=== PATIENT | male | born 1995 | race Caucasian/White ===

== ENCOUNTER 2017-08-11 15:46 | Emergency (ER) | payer BC ==
--- NOTE | 2017-08-11 16:27 | ED ---
Shortness of Breath - HPI Summary HPI Summary: Patient is a 21yo M who presents to the ED after sent by [facility], with chief complaint of L anterior CP since 2 days ago after coughing. The CC is described as a sudden onset, radiating into the R side of his neck. The patient rates the pain 3/10 in severity. Symptoms aggravated by walking up and down stairs and taking a deep breath. Symptoms alleviated by nothing. Patient reports a cough ( resolved today) and decreased breaths. Patient denies fever, N/V/D, and SOB. He notes this has happened before but has spontaneously resolved after 1-2 days in the past. This one seems to not be resolving and was concerned. Parents are at bedside. He appears to be in NAD. Denies health problems. - History of Current Complaint Chief Complaint: EDGeneral Time Seen by Provider: 08/11/17 15:51 Hx Obtained From: Patient Onset/Duration: Sudden Onset Timing: Constant Current Severity: Mild Dyspnea At: Rest Aggrevating Factors: Movement Alleviating Factors: Upright Position Associated Signs & Symptoms: Chest Pain Unrelated to Cough - Risk Factors Pulmonary Embolism: Negative Cardiac: Negative Pseudomonas: Negative Tuberculosis: Negative - Allergy/Home Medications Allergies/Adverse Reactions: Allergies Allergy/AdvReac Type Severity Reaction Status Date / Time No Known Allergies Allergy Verified 08/11/17 16:12 PMH/Surg Hx/FS Hx/Imm Hx Previously Healthy: Yes Endocrine/Hematology History: Denies: Hx Diabetes, Hx Thyroid Disease Cardiovascular History: Denies: Hx Hypertension Respiratory History: Denies: Hx Asthma, Hx Chronic Obstructive Pulmonary Disease (COPD) GI History: Denies: Hx Ulcer - Immunization History Hx Pertussis Vaccination: No Immunizations Up to Date: Unable to Obtain/Confirm Infectious Disease History: No Infectious Disease History: Denies: Hx Clostridium Difficile, Hx Hepatitis, Hx Human Immunodeficiency Virus (HIV), Hx of Known/Suspected MRSA, Hx Shingles, Hx Tuberculosis, Hx Known/ Suspected VRE, Hx Known/Suspected VRSA, History Other Infectious Disease, Traveled Outside the [place] in Last 30 Days - Family History Known Family History: Negative: Cardiac Disease, Hypertension - Social History Occupation: Employed Full-time Lives: With Family Alcohol Use: Occasionally Hx Substance Use: Yes Substance Use Type: Reports: Marijuana Hx Tobacco Use: No Smoking Status (MU): Never Smoked Tobacco Review of Systems Constitutional: Negative Eyes: Negative Cardiovascular: Negative Positive: Shortness Of Breath Gastrointestinal: Negative Positive: no symptoms reported, see HPI Musculoskeletal: Negative Neurological: Negative All Other Systems Reviewed And Are Negative: Yes Physical Exam Triage Information Reviewed: Yes Vital Signs On Initial Exam: Initial Vitals Temp Pulse Resp BP Pulse Ox 99 F 73 16 135/84 100 08/11/17 15:50 08/11/17 15:50 08/11/17 15:50 08/11/17 15:50 08/11/17 15:50 Vital Signs Reviewed: Yes Appearance: Positive: Well-Appearing, Well-Nourished Skin: Positive: Warm, Skin Color Reflects Adequate Perfusion Head/Face: Positive: Normal Head/Face Inspection Eyes: Positive: EOMI, LAINA, Conjunctiva Clear Neck: Positive: Supple, No Lymphadenopathy Respiratory/Lung Sounds: Positive: Decreased Breath Sounds - LLL Cardiovascular: Positive: RRR, Pulses are Symmetrical in both Upper and Lower Extremities Musculoskeletal: Positive: Normal, Strength/ROM Intact Neurological: Positive: Sensory/Motor Intact, Alert, Oriented to Person Place, Time, Speech Normal Psychiatric: Positive: Normal AVPU Assessment: Alert - Kavya Coma Scale Coma Scale Total: 15 Diagnostics - Vital Signs Vital Signs Temp Pulse Resp BP Pulse Ox 08/11/17 16:04 78 21 100 08/11/17 16:02 130/82 08/11/17 15:50 99 F 73 16 135/84 100 - Laboratory Lab Statement: Any lab studies that have been ordered have been reviewed, and results considered in the medical decision making process. Course/Dx - Course Course Of Treatment: Patient evaluated for spontaneous PNX after coughing. He was seen at [facility] and confirmed with chest xray. Dr. Baum called and willing to come to the ED to see the patient. CXR reveals SMALL LEFT-SIDED PNEUMOTHORAX. PRELIMINARY FINDINGS WERE DISCUSSED WITH DR. BEYER AT APPROXIMATELY 1:44 PM ON AUGUST 11, 2017. EKG reveals NSR at 87 bpm and no acute ischemia. Medications have been included in the original chart and reviewed. The pt presents with a probable 2 day hx of a L 20% pneumothorax. Dr. Beyer spoke with Dr. Baum at Urgent Care to make aware of patient prior to arrival. He comes to the ED at 4pm to see patient. Dr. Baum to place chest tube. Repeat chest xray performed. Per Dr. Baum, patient will follow up next week and patient made aware. He is OK for discharge. - Diagnoses Differential Diagnosis/HQI/PQRI: Positive: Chest Wall Pain, Pneumothorax Provider Diagnoses: Pneumothorax Discharge - Discharge Plan Condition: Stable Disposition: HOME Referrals: Arturo Jenkins MD [Medical Doctor] -
[2017-08-11] MEDS ORDERED: Midazolam* 1 MG/ML 2 ML VIAL (2 MG) IV ONE ×2 (16:35→17:04)
[2017-08-11] MEDS ORDERED: Midazolam* 1 MG/ML 2 ML VIAL (2 MG) ONE (16:37)
--- NOTE | 2017-08-11 17:39 | RAD ---
HISTORY: Status post chest tube placement COMPARISONS: October 11, 2016 at 1:30 PM VIEWS: 1: frontal portable view of the chest at 5:05 PM FINDINGS: LINES AND TUBES: There has been interval placement of left-sided chest tube. CARDIOMEDIASTINAL SILHOUETTE: The cardiomediastinal silhouette is normal for portable technique. PLEURA: The costophrenic angles are sharp. No pleural abnormalities are noted. There is no residual pneumothorax. LUNG PARENCHYMA: The lungs are clear. ABDOMEN: The upper abdomen is clear. There is no subphrenic gas. BONES AND SOFT TISSUES: No bone or soft tissue abnormalities are noted. IMPRESSION: NO RESIDUAL PNEUMOTHORAX.
[2017-08-11 18:12] VITALS: BP 120/62
[2017-08-11] MEDS ORDERED: Ondansetron ODT TAB* 4 MG SL ONE (18:13)
[2017-08-11] MEDS ORDERED: Ondansetron ODT TAB* 4 MG ONE (18:14)
--- NOTE | 2017-08-12 00:55 | CONS ---
CONSULTATION REPORT: DATE OF CONSULT: 08/11/17 - EMERGENCY DEPT REFERRING PROVIDER: KURT Aaron. REASON FOR CONSULT: Spontaneous left pneumothorax. HISTORY OF PRESENT ILLNESS: Mr. Magdy Chavez is a 21-year-old gentleman who presented initially to urgent care this afternoon with 2 days of left-sided chest discomfort. He said he had cold recently and was doing quite a bit of vigorous coughing on and developed sudden onset of left chest pain radiating up to the back and the shoulder with some shortness of breath and dyspnea on exertion. At rest he has no shortness of breath. He denies fever, productive cough, or hemoptysis. He states he has had similar symptoms in the past, at least 3 times over the past several years with symptoms that may last for several days, but improve. He presented today, he felt this should be evaluated and it was not necessarily worse than in the past, but was still having discomfort, thus he sought care. Chest x-ray at the urgent care showed a left-sided pneumothorax without evidence of mediastinal shift. There were no other acute findings noted. He was transferred to the emergency room at [facility]. PAST MEDICAL HISTORY: Anxiety. PAST SURGICAL HISTORY: None. MEDICATIONS: None. ALLERGIES: He has no known drug allergies. SOCIAL HISTORY: He is a nonsmoker. 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 REVIEW OF SYSTEMS: Otherwise unremarkable. PHYSICAL EXAM: Generally, he is a slender male with a BMI of 17, heart rate is in the 70s, systolic blood pressure 110, oxygen saturation 100% on 2 L nasal cannula. His trachea was midline. His heart with regular rate and rhythm. He has diminished breath sounds on the left chest. No evidence of crepitants or discomfort. The right lung lr were clear. Abdomen was soft and nondistended. ACTIVITY: I reviewed the chest x-ray. This shows a moderate size left-sided pneumothorax that extends all the way down to the hemidiaphragm laterally and appears to be some subpneumonic areas as well. This is certainly down to approximately the third or fourth rib space anteriorly. IMPRESSION: Spontaneous pneumothorax. This apparently has been occurring in the past resolving spontaneously did not seek care and this is the first time that he has been formally diagnosed with what sounds like recurrent spontaneous left pneumothorax. We discussed managements such observation versus tube drainage for definitive care. We also discussed in fact that I would strongly recommend follow up with thoracic surgeon for consideration of thoracoscopy as this has been recurrent and he certainly has the history and body habitus and most likely blood disease that will result in recurrent pneumothoraces. Thorough discussion the pros and cons of the catheter drainage versus observation with repeat chest x-ray, I recommend that we proceed with a pneumothorax catheter placement as he is still having some significant discomfort 2 days into the process and he has fairly significant pneumothorax on x-ray. The procedure was discussed with the patient and his parents. The risks include , but are not limited to bleeding, infection, pulmonary injury, cardiac injury, great vessel injury, nonfunctioning of the catheter requiring possible placement of a larger, formal chest tube. We also discussed possible hospital stay versus discharge home with office follow up. Please see separate dictated procedure note. [id number]/CPS #: [id number] MTDD
--- NOTE | 2017-08-12 08:44 | OP ---
DATE OF OPERATION: 08/11/17 - EMERGENCY DEPT DATE OF : 89 SURGEON: Samy Baum MD. ANESTHESIA: 3 mg of IV Versed and 1% lidocaine plain. PRE-OP DIAGNOSIS: Spontaneous left pneumothorax. POST-OP DIAGNOSIS: Spontaneous left pneumothorax. OPERATIVE PROCEDURE: Insertion of an 8-Moroccan left anterior chest wall pneumothorax catheter. ESTIMATED BLOOD LOSS: Minimal. SPECIMENS: None. COMPLICATIONS: None. HISTORY: Mr. Magdy Chavez is a 21-year-old gentleman who presented with a spontaneous pneumothorax; and, after discussion, we are planning to place a left pneumothorax catheter. Please see the separate dictated consultation report for details. DESCRIPTION OF PROCEDURE: Written informed consent was obtained, the left chest was marked with marked with indelible ink. IV access had been obtained. The patient was placed on nasal cannula oxygen. He was placed in a slight sitting upright supine position. Time out verification was completed. The left anterior chest wall was prepped and draped in the usual sterile fashion. An area was palpated over what was felt to be the second anterior rib space at the midclavicular line and 1% lidocaine with epinephrine was infiltrated down to the rib and slightly over into the pleural space where air was aspirated. A small job was made with a 11 -blade knife and the 8-Moroccan catheter over the needle was then inserted over the superior aspect of the rib into the pleural space and then inserted without difficulty. This was placed to the Heimlich valve apparatus and suction was applied. There was immediate condensation on the catheter tubing and his oxygen saturations remained at 100% and he remained hemodynamically stable. The catheter was then secured to the skin with several 2-0 silk sutures. An occlusive dressing with Vaseline gauze, 2x2 gauze, and a large Tegaderm was then placed over the catheter to secure it to the skin. Catheter was left to the single Heimlich valve. Postprocedure chest x-ray showed the catheter to be in good position with lung completely expanded. I noted no air leak on the Heimlich valve at the completion of the case. Plans will be for a followup chest x-ray on Sunday morning with an office visit after the x-ray to evaluate for continued and persistent leak and possible tube removal on Sunday. All of the above was discussed with the patient and his parents in the emergency room. [id number]/[facility] #: [id number] [facility]IMIN[facility] INSANEMaría
== END 2017-08-11 18:16 | disposition home or self-care (01) ==
LOC: ED 15:46
DX: J93.83 Other pneumothorax (principal)
CPT/HCPCS: 71010; 96374; 96376; 99284; A9270-GY; J2250

== ENCOUNTER 2018-01-09 20:34 | Emergency (ER) | payer BC ==
--- NOTE | 2018-01-09 21:07 | RAD ---
INDICATION: RIGHT lateral hand pain following injury. Swelling. COMPARISON: No relevant prior exams available on the [facility] PACS for comparison. TECHNIQUE: AP, lateral, and oblique views RIGHT hand. REPORT AND IMPRESSION: Mid diaphyseal fracture of the fifth metacarpal with approximate one half bone width dorsal ulnar displacement and up to 45 degrees apex dorsal angulation. Overlying soft tissue swelling. Negative for additional fracture. Normal articular alignment.
--- NOTE | 2018-01-09 23:39 | ED ---
Upper Extremity Pain - HPI Summary HPI Summary: Pt here w/ R hand injury prior to arrival. Hand got slammed between door and frame - swollen and painful w/ decreased sensation in pinky - still able to move. Took 600mg ibuprofen prior to arrival - feels okay as long as he doesn't move it. - History of Current Complaint Chief Complaint: EDExtremityUpper Stated Complaint: RT PINKY INJURY Time Seen by Provider: 01/09/18 21:32 - Allergies/Home Medications Allergies/Adverse Reactions: Allergies Allergy/AdvReac Type Severity Reaction Status Date / Time No Known Allergies Allergy Verified 01/09/18 20:38 PMH/Surg Hx/FS Hx/Imm Hx Previously Healthy: Yes Endocrine/Hematology History: Denies: Hx Anticoagulant Therapy, Hx Blood Disorders, Hx Diabetes, Hx Thyroid Disease Cardiovascular History: Denies: Hx Hypertension Respiratory History: Denies: Hx Asthma, Hx Chronic Obstructive Pulmonary Disease (COPD) GI History: Denies: Hx Ulcer - Immunization History Immunizations Up to Date: Yes Infectious Disease History: No Infectious Disease History: Denies: Hx Clostridium Difficile, Hx Hepatitis, Hx Human Immunodeficiency Virus (HIV), Hx of Known/Suspected MRSA, Hx Shingles, Hx Tuberculosis, Hx Known/ Suspected VRE, Hx Known/Suspected VRSA, History Other Infectious Disease, Traveled Outside the [place] in Last 30 Days - Family History Known Family History: Positive: None Negative: Cardiac Disease, Hypertension - Social History 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 Lives: With Family Alcohol Use: Occasionally Hx Substance Use: Yes Substance Use Type: Reports: Marijuana - recreationally Hx Tobacco Use: No Smoking Status (MU): Never Smoked Tobacco Review of Systems All Other Systems Reviewed And Are Negative: Yes Physical Exam Vital Signs On Initial Exam: Initial Vitals Temp Pulse Resp BP Pulse Ox 99.4 F 92 16 138/85 98 01/09/18 20:35 01/09/18 20:35 01/09/18 20:35 01/09/18 20:35 01/09/18 20:35 Procedures - Splinting Location: Rt hand Hand-Made Type: fiberglass Splint: ulnar - ulnar gutter Pre-Proc Neuro Vasc Exam: normal Post-Proc Neuro Vasc Exam: normal Diagnostics - Vital Signs Vital Signs Temp Pulse Resp BP Pulse Ox 01/09/18 20:35 99.4 F 92 16 138/85 98 - Laboratory Lab Statement: Any lab studies that have been ordered have been reviewed, and results considered in the medical decision making process. Course/Dx - Course Course Of Treatment: Discussed w/ Gonzales - splint and call office tomorrow to schedule appt for Sunday in clinic. - Diagnoses Provider Diagnoses: Closed fracture of 5th metacarpal Discharge - Sign-Out/Discharge Documenting (check all that apply): Discharge - Discharge Plan Condition: Stable Disposition: HOME Prescriptions: HYDROcodone/ACETAMIN 5-325 MG* [[place] 5-325 TAB*] 1 tab PO Q6H PRN #4 tab MDD 4 PRN Reason: Pain Patient Education Materials: Hand Fracture (ED), Splint Care (ED) Forms: *Work Release Referrals: Paco Rolon MD [Medical Doctor] - Additional Instructions: REST, ICE, ELEVATE AND KEEP SPLINT CLEAN, DRY AND IN PLACE UNTIL SEEN BY ORTHOPEDICS. Call tomorrow morning to schedule an appointment for Sunday afternoon in orthopedic clinic. Contact information included here. You may take ibuprofen 600 mg every 6 hours with food alternating with acetaminophen 650 mg every 6 hours as needed for pain *If you develop numbness, tingling, weakness, swelling or skin discoloration, loosen CAROLINE wrap and elevate arm for 20 minutes. If symptoms persist, return to ED - Billing Disposition and Condition Condition: STABLE Disposition: HOME
[2018-01-10 00:19] VITALS: BP 121/80
== END 2018-01-10 00:10 | disposition home or self-care (01) ==
LOC: ED 20:34
DX: S62.306A Unspecified fracture of fifth metacarpal bone, right hand, initial encounter for closed fracture (principal); W23.0XXA Caught, crushed, jammed, or pinched between moving objects, initial encounter; Y92.9 Unspecified place or not applicable
CPT/HCPCS: 99282

== ENCOUNTER 2018-01-16 10:50 | Day surgery (SDC) | payer BC ==
[~2018-01-16 10:50] MED LIST: Buffered Lidocaine 0.9% SYRIN* 5 ML/SYR SYRINGE INTRADERM ONE; Bupivacaine 0.25% SDV* 30 ML ONE; Bupivacaine 0.5%* 50 ML VIAL ONE; Dexamethasone IV* 4 MG/ML 1 ML (4 MG) IV SLOW PU ONE; Lidocaine 2% PF * 5 ML VIAL ONE; Midazolam* 1 MG/ML 2 ML VIAL (2 MG) ONE; Propofol* 10 MG/ML 20 ML BTL IV PUSH ONE; fentaNYL* 50 MCG/ML 2 ML VIAL (100 MCG VIAL) ONE
[2018-01-16] MEDS ORDERED: ceFAZolin 2 GM PREMIX (*) 2 GM/50 ML BAG IVPB ONE (11:02)
[2018-01-16] MEDS ORDERED: Dexamethasone IV* 4 MG/ML 1 ML (4 MG) ONE (11:02)
[2018-01-16] MEDS ORDERED: Ondansetron INJ* 2 MG/ML VIAL IV PRN (12:17)
[2018-01-16] MEDS ORDERED: fentaNYL* 50 MCG/ML 2 ML VIAL (100 MCG VIAL) IV PRN (12:17)
[2018-01-16] MEDS ORDERED: HYDROmorphone INJ* 1 MG/ML CARPUJECT SYRINGE IV PRN (12:17)
[2018-01-16] MEDS ORDERED: oxyCODONE/Acetamin 5/325 MG* TAB PO PRN (12:17)
[2018-01-16] MEDS ORDERED: Naloxone* 0.4 MG/ML 1 ML VIAL IV PRN (12:17)
[2018-01-16] MEDS ORDERED: Acetaminophen TAB* 325 MG PO PRN (12:17)
[2018-01-16] MEDS ORDERED: oxyCODONE TAB* 5 MG TAB PO PRN (12:17)
[2018-01-16] MEDS ORDERED: fentaNYL* 50 MCG/ML 2 ML VIAL (100 MCG VIAL) ONE (13:30)
[2018-01-16] MEDS ORDERED: Ondansetron INJ* 2 MG/ML VIAL ONE (13:56)
[2018-01-16] MEDS ORDERED: Ketorolac INJ* 30 MG/ML 1 ML VIAL ONE (13:56)
[2018-01-16] MEDS ORDERED: oxyCODONE/Acetamin 5/325 MG* TAB ONE (14:58)
--- NOTE | 2018-01-16 15:39 | RAD ---
INDICATION: ORIF right fifth metacarpal COMPARISON: Right hand January 09, 2018 FINDINGS: 8 seconds of fluoroscopy were provided for the orthopedics department. Fluoroscopic spot imaging of the right hand were obtained for operative control and show ORIF of the fifth metacarpal fracture with placement of cortical plate and screws. The fracture fragments are in anatomic position . CPT II Codes: G9500 (fluoro time doc)
[2018-01-16 15:54] VITALS: BP 119/75
--- NOTE | 2018-01-17 04:23 | OP ---
DATE OF OPERATION: 01/16/18 - [facility] DATE OF : 89 SURGEON: Paco Rolon MD INSURANCE OFFICE MANAGER: KURT Bradley. An laboratory assistant was needed for the procedure to aid in positioning of the arm and retraction. ANESTHESIOLOGIST: Dr. Villarreal. ANESTHESIA: General. PRE-OP DIAGNOSIS: Right displaced fifth metacarpal shaft fracture. POST-OP DIAGNOSIS: Right displaced fifth metacarpal shaft fracture. OPERATIVE PROCEDURE: Open reduction internal fixation right displaced fifth metacarpal shaft fracture. INDICATIONS: Magdy had a very displaced fracture. We talked about risks and benefits. He wanted to proceed. ESTIMATED BLOOD LOSS: 2 mL. COMPLICATIONS: None. FINDINGS: As expected. DESCRIPTION OF PROCEDURE: Magdy was seen in the preoperative holding area. The correct site, side, and procedure were identified. We came back to the operating room. The arm was prepped and draped in the usual fashion. It was thoroughly scrubbed. A time-out was performed. The arm was exsanguinated with the Esmarch and the tourniquet was inflated to 250 mmHg. I made a longitudinal incision in line with the fifth metacarpal bone. Dissection was carried down. The sensory nerves and traversing veins were mobilized and retracted radially. The interval between the EDM and the EDC tendon was split. I did have to split the tendon just a bit distally longitudinally. The tendons were retracted. The periosteum over the tendons was incised longitudinally and full thickness flaps were raised subperiosteally. The fracture site was mobilized, cleaned, and reduced. A 1.5 mm plate was brought in off of the Synthes variable angle handset. The plate was clamped into place. I placed one 1.5 mm cortical screw distally. Final reduction of the fracture was obtained and then I placed one screw in compression mode in the proximal oblong hole. I then filled the remainder of the distal and proximal holes giving me 3 to 4 screws proximal to the fracture and 3 screws distal to the fracture. Care was taken to avoid the articular surfaces. Final mini C-arm fluoroscopic imaging confirmed a reduction of the fracture and good placement of the plate. The wound was irrigated out. The periosteum was closed over this plate with 4-0 Prolene suture. The little longitudinal split that I made in the distal aspect of the tendon was repaired with a couple of buried 4-0 Prolene [id number] sutures. Skin was closed with 4-0 Monocryl and Steri-Strips. It was infiltrated with 0.25% plain Marcaine. The wound was dressed with 4x4, sterile Webril and then an ulnar gutter splint was applied in the protected position. He was woken up and taken to the recovery room in stable condition. [id number]/[facility] #: [id number] [facility]
== END 2018-01-16 15:57 | disposition home or self-care (01) ==
LOC: OR 10:50
PROVIDERS: ATTEND Orthopaedic Surgery Hand Surgery
DX: S62.306A Unspecified fracture of fifth metacarpal bone, right hand, initial encounter for closed fracture (principal); W23.0XXA Caught, crushed, jammed, or pinched between moving objects, initial encounter; Y92.9 Unspecified place or not applicable; F41.8 Other specified anxiety disorders; F90.9 Attention-deficit hyperactivity disorder, unspecified type; Z68.1 Body mass index [BMI] 19.9 or less, adult; R63.6 Underweight
CPT/HCPCS: 76000; A9270-GY; C1713; C1776; J0690; J1100; J1885; J2250; J2405; J2704; J3010

== ENCOUNTER 2018-06-30 11:52 | Emergency (ER) | payer BC ==
--- NOTE | 2018-06-30 12:40 | ED ---
Shortness of Breath - HPI Summary HPI Summary: This patient is a 22 year old M presenting to [facility] accompanied by friend with a chief complaint of L-sided CP that began 06/28/2018 and worsened today. The patient rates the pain 7/10 in severity. Symptoms aggravated by nothing. Symptoms alleviated by nothing. Patient reports SOB and dry cough. Patient states he had a collapsed left lung approximately one year ago. - History of Current Complaint Chief Complaint: EDShortnessOfBreath Time Seen by Provider: 06/30/18 12:32 Hx Obtained From: Patient Onset/Duration: Sudden Onset, Lasting Days, Worse Since - Today Timing: Constant Current Severity: Moderate Dyspnea At: Rest Aggrevating Factors: Nothing Alleviating Factors: Nothing Associated Signs & Symptoms: Cough (Nonproductive), Chest Pain Unrelated to Cough - Allergy/Home Medications Allergies/Adverse Reactions: Allergies Allergy/AdvReac Type Severity Reaction Status Date / Time No Known Allergies Allergy Verified 07/02/18 10:18 PMH/Surg Hx/FS Hx/Imm Hx Previously Healthy: No Endocrine/Hematology History: Denies: Hx Anticoagulant Therapy, Hx Blood Disorders, Hx Diabetes, Hx Thyroid Disease Cardiovascular History: Denies: Hx Hypertension Respiratory History: Reports: Other Respiratory Problems/Disorders - Pneumothorax Denies: Hx Asthma, Hx Chronic Obstructive Pulmonary Disease (COPD) GI History: Denies: Hx Ulcer Sensory History: Denies: Hx Contacts or Glasses, Hx Hearing Aid Opthamlomology History: Denies: Hx Contacts or Glasses Psychiatric History: Reports: Hx Anxiety - ADHD, Hx Depression - Cancer History Hx Chemotherapy: No - Surgical History Surgery Procedure, Year, and Place: tube placement for collapsed lung Hx Anesthesia Reactions: No Infectious Disease History: No Infectious Disease History: Denies: Hx Clostridium Difficile, Hx Hepatitis, Hx Human Immunodeficiency Virus (HIV), Hx of Known/Suspected MRSA, Hx Shingles, Hx Tuberculosis, Hx Known/ Suspected VRE, Hx Known/Suspected VRSA, History Other Infectious Disease, Traveled Outside the [place] in Last 30 Days - Family History Known Family History: Positive: None Negative: Cardiac Disease, Hypertension - Social History Occupation: Student Lives: With Family Alcohol Use: Occasionally Hx Substance Use: Yes Substance Use Type: Reports: Marijuana - recreationally Hx Tobacco Use: No Smoking Status (MU): Never Smoked Tobacco Review of Systems Positive: Chest Pain Positive: Shortness Of Breath, Cough All Other Systems Reviewed And Are Negative: Yes Physical Exam - Summary Physical Exam Summary: VITAL SIGNS: Reviewed. GENERAL: Patient is a well-developed and nourished male who is lying comfortable in the stretcher. Patient is not in any acute respiratory distress. HEAD AND FACE: No signs of trauma. No ecchymosis, hematomas or skull depressions. No sinus tenderness. EYES: PERRLA, EOMI x 2, No injected conjunctiva, no nystagmus. EARS: Hearing grossly intact. Ear canals and tympanic membranes are within normal limits. MOUTH: Oropharynx within normal limits. NECK: Supple, trachea is midline, no adenopathy, no JVD, no carotid bruit, no c- spine tenderness, neck with full ROM. CHEST: Symmetric, no tenderness at palpation LUNGS: No wheezing or crackles. Decreased breath sounds on the left side CVS: Regular rate and rhythm, S1 and S2 present, no murmurs or gallops appreciated. ABDOMEN: Soft, non-tender. No signs of distention. No rebound no guarding, and no masses palpated. Bowel sounds are normal. EXTREMITIES: FROM in all major joints, no edema, no cyanosis or clubbing. NEURO: Alert and oriented x 3. No acute neurological deficits. Speech is normal and follows commands. SKIN: Dry and warm Triage Information Reviewed: Yes Vital Signs On Initial Exam: Initial Vitals Temp Pulse Resp BP Pulse Ox 97.6 F 73 16 115/66 100 06/30/18 11:53 06/30/18 11:53 06/30/18 11:53 06/30/18 11:53 06/30/18 11:53 Vital Signs Reviewed: Yes Diagnostics - Vital Signs Vital Signs Temp Pulse Resp BP Pulse Ox 06/30/18 11:53 97.6 F 73 16 115/66 100 - Laboratory Result Diagrams: 06/30/18 12:45 06/30/18 12:45 Lab Statement: Any lab studies that have been ordered have been reviewed, and results considered in the medical decision making process. - Radiology CXR Radiology Interpretation Completed By: Radiologist - CXR reveals, per radiologist, left apical pneumothorax. ED physician has reviewed this radiology report. Chest XR Radiology Interpretation Completed By: Radiologist - CXR reveals, per radiologist, stable left apical pneumothorax. ED physician has reviewed this radiology report. - EKG 1241 Cardiac Rate: NL EKG Rhythm: Sinus Rhythm - [address] Segment: Normal Course/Dx - Course Assessment/Plan: This patient is a 22 year old M presenting to [facility] accompanied by friend with a chief complaint of L-sided CP that began 06/28/2018 and worsened today. The patient rates the pain 7/10 in severity. Symptoms aggravated by nothing. Symptoms alleviated by nothing. Patient reports SOB and dry cough. Patient states he had a collapsed left lung approximately one year ago. Blood work without any significant abnormality except for CPK of 269. EKG shows no ST elevation. Chest x-ray impression: Left apical pneumothorax. As per report of approximately 20%. I discussed the case with Dr. Landis from surgery and he requested to wait for approximately 4 hours to repeat the chest x -ray. Then he will come and also for the patient. At this point the patient is hemodynamically stable, the patient O2 sat is between 96-99 % and the patient is not tachycardic. Second chest x-ray impression: No change from the previous. At this point Dr. Landis from surgery came and assessed the patient. After his assessment he requested to discharge the patient home and he given a prescription for a repeat chest x-ray tomorrow morning and he will follow up with Dr. Landis at his office tomorrow at 8:30 AM. I discussed again the plan with the patient and he agrees. The patient's mother also agrees. The patient is hemodynamically stable. He was recommended to return to the emergency room if he develops more shortness of breath, chest pain or any other symptom. The patient understands and agrees. - Diagnoses Differential Diagnosis/HQI/PQRI: Positive: Asthma, Bronchitis, CHF, Chest Wall Pain, COPD Exacerbation, Pneumonia, Pneumothorax Provider Diagnoses: Spontaneous pneumothorax - Physician Notifications Discussed Care of Patient With: Brandan Landis Time Discussed With Above Provider: 13:25 Instructed by Provider To: Other - Consult with Dr. Landis (surgery) at 1325. He recommends the CXR be repeated in 4 hours, and then he will come see the patient. Consult with Dr. Landis (surgery) at 1655. He recommends pt be discharged with a follow up XR and appointment with him. Discharge - Sign-Out/Discharge Documenting (check all that apply): Patient Departure - Discharge home - Discharge Plan Condition: Stable Disposition: HOME Patient Education Materials: Spontaneous Pneumothorax (ED) Referrals: Brandan Landis MD [Medical Doctor] - 2 Days [facility] PHYSICIAN REFERRAL [Outside] - 2 Days Additional Instructions: RETURN TO THE EMERGENCY DEPARTMENT FOR NEW OR WORSENING SYMPTOMS - Billing Disposition and Condition Condition: STABLE Disposition: Home - Attestation Statements Document Initiated by Scribe: Yes Documenting Scribe: Anum Ruiz Provider For Whom Scribe is Documenting (Include Credential): Avtar Lerma MD Scribe Attestation: I, Anum Ruiz, scribed for Avtar Lerma MD on 07/02/18 at 1835. Scribe Documentation Reviewed: Yes Provider Attestation: The documentation as recorded by the Anum martins accurately reflects the service I personally performed and the decisions made by me, Avtar Lerma MD
[2018-06-30 12:55] LABS: ABS Basophils 0 10^3/ul (0-0.2); ABS Eosinophils 0.2 10^3/ul (0-0.6); ABS Lymphocytes 1.4 10^3/ul (1.0-4.8); ABS Monocytes 0.5 10^3/ul (0-0.8); ABS Nucleated RBC 0 10^3/ul; Eosinophil % 2.8 % (0-6); Hematocrit 45 % (42-52); Hemoglobin 15.4 g/dl (14.0-18.0); Lymphocyte % 19.3 % (25-47); Mean Corpuscular HGB Conc 34 g/dl (31-36); Mean Corpuscular Hemoglobin 30 pg (27-31); Mean Corpuscular Volume 88 fL (80-94); Mean Platelet Volume 7.5 um3 (7.4-10.4); Nucleated Red Blood Cells % 0; Platelet Count 205 10^3/ul (150-450); Red Blood Count 5.12 10^6/ul (4.00-5.40); Red Cell Distribution Width 13 % (10.5-15); White Blood Count 7.1 10^3/ul (3.5-10.8)
--- NOTE | 2018-06-30 13:05 | RAD ---
HISTORY: SOB and CP COMPARISONS: August 13, 2017 VIEWS: 4: Frontal dual-energy and lateral views of the chest. FINDINGS: CARDIOMEDIASTINAL SILHOUETTE: The cardiomediastinal silhouette is normal. DOMENICA: The domenica are normal. PLEURA: There is left apical pneumothorax, approximately 20% by height on the frontal projection. LUNG PARENCHYMA: The lungs are clear. ABDOMEN: The upper abdomen is clear. There is no subphrenic gas. BONES AND SOFT TISSUES: No bone or soft tissue abnormalities are noted. OTHER: None. IMPRESSION: LEFT APICAL PNEUMOTHORAX. PRELIMINARY FINDINGS WERE DISCUSSED WITH DR. BOYD IN THE EMERGENCY DEPARTMENT AT APPROXIMATELY 12:59 PM ON 2017 .
[2018-06-30 13:11] LABS: EGFR Non-African American 140.9 (>60)
--- NOTE | 2018-06-30 16:37 | RAD ---
HISTORY: Pneumothorax COMPARISONS: June 03, 2018 at 1:03 PM VIEWS: 4: Frontal dual-energy and lateral views of the chest. FINDINGS: CARDIOMEDIASTINAL SILHOUETTE: The cardiomediastinal silhouette is normal. DOMENICA: The domenica are normal. PLEURA: There is persistent left apical pneumothorax able from the previous examination. LUNG PARENCHYMA: The lungs are clear. ABDOMEN: The upper abdomen is clear. There is no subphrenic gas. BONES AND SOFT TISSUES: No bone or soft tissue abnormalities are noted. OTHER: None. IMPRESSION: STABLE LEFT APICAL PNEUMOTHORAX
[2018-06-30 17:05] VITALS: BP 120/75
--- NOTE | 2018-07-01 13:16 | CONS ---
CONSULTATION REPORT: DATE OF CONSULT: 06/30/18 - EMERGENCY DEPT. REASON FOR CONSULT: Recurrent left pneumothorax. HISTORY OF PRESENT ILLNESS: This is a 22-year-old male seen previously at [facility] for a left spontaneous pneumothorax. He had a left pneumothorax catheter placed in August 2017 and had been recommended to follow up with Thoracic Surgery. The patient had no subsequent followup. He reports a 2-day history of pain in the left chest. 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 He had pain and then over the next couple of days, he developed some dyspnea with exertion and he has had a nonproductive cough. He presented to the emergency room at [facility] on 06/30/18 and a chest x-ray revealed a 30% left pneumothorax. The patient reports that his symptoms do not seem to be worsening. He does note some sense of shifting of the left chest when he bends or twists. PAST MEDICAL HISTORY: Significant for prior left spontaneous pneumothorax. Also includes depression and ADHD. PAST SURGICAL HISTORY: He has had hand surgery on the right in December 2017 and chest tube on the left in August 2017. ALLERGIES: None. MEDICATIONS: None. 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 He is single. No tobacco use. PHYSICAL EXAM: Thin, 5 feet 11 inches tall, 120 pounds male. Temperature 97.6 , pulse 64, respirations 12, O2 sat 98% on room air, blood pressure 114/88. Neck: No tracheal deviation. Chest: Clear to auscultation bilaterally. No discernible decreased breath sounds, left compared to right. No hyperresonance , left compared to right. DIAGNOSTIC STUDIES/LAB DATA: Chest x-ray: This is reviewed. He has 30% pneumothorax with no change in interval x-rays done between initial arrival films and 4 hours later. IMPRESSION: A 22-year-old male with recurrent left pneumothorax. He is minimally symptomatic at this time. PLAN/RECOMMENDATION: I discussed the findings with the patient and we discussed management options. He would like to avoid chest tube at this time. I think this is reasonable as he has been stable, though I advised him that it would take some time for this to completely resolve. I did explain to the patient and his mother that the prior recommendation for him to see Thoracic Surgery for consideration of lung reduction surgery would still be needed. They are not interested in arranging that at present. The patient will be discharged home from the emergency room. I will arrange for him to have a short-term followup chest x-ray in the morning and see him for followup in the office after that. All questions were answered. They agreed to the plan. [id number]/[facility] #: [id number] MTDD
== END 2018-06-30 17:08 | disposition home or self-care (01) ==
LOC: ED 11:52
DX: J93.9 Pneumothorax, unspecified (principal); R05 Cough; R07.9 Chest pain, unspecified; R06.02 Shortness of breath
CPT/HCPCS: 36415; 71046; 80053; 82550; 85025; 86850; 86900; 86901; 93005; 99283

== ENCOUNTER 2018-07-01 09:42 | Day surgery (SDC) | payer BC ==
[2018-07-01] MEDS ORDERED: Acetaminophen TAB* 325 MG PO PRN (11:08)
[2018-07-01] MEDS ORDERED: Ibuprofen TAB* 400 MG PO PRN (11:08)
[2018-07-01] MEDS ORDERED: Ondansetron ODT TAB* 4 MG SL PRN (11:09)
--- NOTE | 2018-07-01 11:43 | RAD ---
HISTORY: s/p chest tube; L ptx COMPARISONS: July 01, 2018 at 8:31 AM VIEWS: 1: frontal AP view of the chest at 11:20 AM FINDINGS: LINES AND TUBES: There has been interval placement of left-sided chest tube. CARDIOMEDIASTINAL SILHOUETTE: The cardiomediastinal silhouette is normal for portable technique. PLEURA: There is a persistent left apical pneumothorax. LUNG PARENCHYMA: The lungs are clear. ABDOMEN: The upper abdomen is clear. There is no subphrenic gas. BONES AND SOFT TISSUES: No bone or soft tissue abnormalities are noted. IMPRESSION: PERSISTENT LEFT APICAL PNEUMOTHORAX, STATUS POST CHEST TUBE PLACEMENT.
--- NOTE | 2018-07-02 00:01 | PRO ---
DATE OF OPERATION: 07/01/18 - [facility] DATE OF : [birth year] SURGEON: Brandan Landis MD MATERIALS CLERK: None. ANESTHESIA: 1% lidocaine plain used locally. PRE-OP DIAGNOSIS: Recurrent left pneumothorax. POST-OP DIAGNOSIS: Recurrent left pneumothorax. OPERATIVE PROCEDURE: Placement of left pneumothorax catheter with Heimlich valve. ESTIMATED BLOOD LOSS: Minimal. IV FLUIDS: None. SPECIMEN: None. DRAIN: 8-Polish pneumothorax catheter Heimlich valve. COMPLICATIONS: None. DESCRIPTION OF PROCEDURE: The patient was positioned semi-Ochoa on the hospital stretcher in the procedure room. He was prepped and draped in usual sterile fashion and time-out was performed. Local anesthetic was infiltrated into the skin and soft tissue in the mid clavicular line at approximately the second intercostal space. The patient's tissues were infiltrated with local anesthetic into the pleural space and air was aspirated. Next, a job was created in the skin with a 11-blade scalpel and then the pneumothorax catheter was advanced into the pleural space. The needle was removed and the air exchange was noted. The catheter was sutured in place with 3-0 silk at two sides. Tegaderm dressing was placed over the catheter after it has been connected to the Heimlich valve. There was excellent variation noted with respirations. The patient tolerated the procedure well. Chest x-ray was ordered and demonstrated decrease in the size of pneumothorax with the chest tube in proper position. [id number]/[facility] #: [id number] MTDD
== END 2018-07-01 11:53 | disposition home or self-care (01) ==
LOC: OR 09:42
PROVIDERS: ATTEND Surgery
DX: J93.12 Secondary spontaneous pneumothorax (principal); F41.9 Anxiety disorder, unspecified
CPT/HCPCS: 71045

== ENCOUNTER 2018-07-02 10:01 | Day surgery (SDC) | payer BC ==
[2018-07-02] MEDS ORDERED: Buffered Lidocaine 0.9% SYRIN* 5 ML/SYR SYRINGE ONE (10:11)
[2018-07-02] MEDS ORDERED: Acetaminophen TAB* 325 MG PO ONE (10:18)
[2018-07-02] MEDS ORDERED: Buffered Lidocaine 0.9% SYRIN* 5 ML/SYR SYRINGE INTRADERM ONE (10:18)
[2018-07-02] MEDS ORDERED: Naloxone* 0.4 MG/ML 1 ML VIAL IV PRN (10:22)
[2018-07-02] MEDS ORDERED: PROCHLORPERAZINE INJ 5 MG/ML 2 ML VIAL IV PRN (10:22)
[2018-07-02] MEDS ORDERED: fentaNYL* 50 MCG/ML 2 ML VIAL (100 MCG VIAL) IV PRN (10:22)
[2018-07-02] MEDS ORDERED: HYDROcodone/ACETAMIN 5-325 MG* 1 TAB PO PRN ×2 (10:22)
[2018-07-02] MEDS ORDERED: Ondansetron INJ* 2 MG/ML VIAL IV PRN (10:22)
[2018-07-02] MEDS ORDERED: Levalbuterol 0.63MG/3ML NEB* UNIT OF USE INH PRN (10:22)
[2018-07-02] MEDS ORDERED: DiMENhydriNATE IV* 50 MG/ML VIAL IV PUSH PRN (10:22)
[2018-07-02] MEDS ORDERED: Midazolam* 1 MG/ML 2 ML VIAL (2 MG) ONE (10:59)
[2018-07-02] MEDS ORDERED: fentaNYL* 50 MCG/ML 2 ML VIAL (100 MCG VIAL) ONE (10:59)
[2018-07-02] MEDS ORDERED: Lidocaine 1% INJ* 10 MG/ML 30 ML SDV ONE (11:28)
[2018-07-02] MEDS ORDERED: Famotidine IV* 10 MG/ML 2 ML (20 mg) ONE (11:35)
[2018-07-02] MEDS ORDERED: Propofol* 10 MG/ML 20 ML BTL IV PUSH ONE (11:35)
[2018-07-02] MEDS ORDERED: HYDROcodone/ACETAMIN 5-325 MG* 1 TAB ONE (12:18)
--- NOTE | 2018-07-02 12:34 | RAD ---
INDICATION: Portable chest in OR, left pneumothorax. COMPARISON: There are no relevant prior studies available for comparison. TECHNIQUE: A portable view of the chest was obtained. FINDINGS: Cardiac and mediastinal contours appear to be within normal limits. The lungs are clear. There appears to be a small left apical pneumothorax which has decreased in size from the prior exam. There is a Heimlich-type chest tube. The catheter tip projects at the left lung apex. IMPRESSION: SMALL LEFT APICAL PNEUMOTHORAX, DECREASED IN SIZE.
[2018-07-02 13:06] VITALS: BP 123/80
--- NOTE | 2018-07-03 09:36 | PRO ---
PROCEDURE REPORT: DATE OF PROCEDURE: 07/02/18 SURGEON: Brandan Landis MD. HOSPICE MUSIC THERAPY: None. ANESTHESIA: Local MAC. ANESTHESIOLOGIST: Dr. Vasquez. PRE-OP DIAGNOSIS: Recurrent left pneumothorax. POST-OP DIAGNOSIS: Recurrent left pneumothorax. OPERATIVE PROCEDURE: Percutaneous placement of 8-Grenadian left pneumothorax catheter with Heimlich daksha ve. ESTIMATED BLOOD LOSS: Minimal. IV FLUIDS: Crystalloid. SPECIMEN: None. DRAIN: An 8-Grenadian pneumothorax catheter. COMPLICATIONS: None. DESCRIPTION OF PROCEDURE: The patient was brought to the operating room, placed on the table in semi -Ochoa position. He was administered intravenous sedation. His left chest was prepped and draped i n usual sterile fashion and time-out was performed. Local anesthetic was infiltrated into the skin and soft tissue and at the site just above the previou s catheter insertion site. Local anesthetic was infiltrated down to the underlying rib and then subs equently a job was made in the skin with an 11 blade scalpel. The 8-Grenadian catheter over needle dev ice was advanced into the pleural cavity and air was aspirated. The catheter was sutured at 3 sites with 3-0 silk. The catheter was connected to the Heimlich valve and connected to Pleur-evac suction. A Tegaderm dressing was applied. A post procedural film revealed the catheter being in good positi on and the pneumothorax was resolved. The patient tolerated the procedure well and was transferred t o same day surgery in stable condition. [id number]/[facility] #: [id number]
== END 2018-07-02 13:08 | disposition home or self-care (01) ==
LOC: OR 10:01
PROVIDERS: ATTEND Surgery
DX: J93.81 Chronic pneumothorax (principal); F41.9 Anxiety disorder, unspecified
CPT/HCPCS: 71045; J2250; J2704; J3010

== ENCOUNTER 2018-07-11 14:07 | Inpatient (IN) | payer BC ==
[~2018-07-11 14:07] MED LIST changes: -Bupivacaine 0.25% SDV* 30 ML ONE; -Bupivacaine 0.5%* 50 ML VIAL ONE; -Dexamethasone IV* 4 MG/ML 1 ML (4 MG) IV SLOW PU ONE; +Dexamethasone TAB* 4 MG PO ONE; +DiMENhydriNATE IV* 50 MG/ML VIAL IV PUSH PRN; +Famotidine IV* 10 MG/ML 2 ML (20 mg) IV ONE; -Lidocaine 2% PF * 5 ML VIAL ONE; -Midazolam* 1 MG/ML 2 ML VIAL (2 MG) ONE; +Naloxone* 0.4 MG/ML 1 ML VIAL IV PRN; +Ondansetron TAB* 4 MG PO ONE; +PROCHLORPERAZINE INJ 5 MG/ML 2 ML VIAL IV PRN; -Propofol* 10 MG/ML 20 ML BTL IV PUSH ONE; +Scopolamine 1.5 mg* PATCH TRANSDERM PRN; +fentaNYL* 50 MCG/ML 2 ML VIAL (100 MCG VIAL) IV PRN; -fentaNYL* 50 MCG/ML 2 ML VIAL (100 MCG VIAL) ONE; +oxyCODONE/Acetamin 5/325 MG* TAB PO PRN
--- OUTSIDE RECORDS SUMMARY | 2018-07-11 14:10 | XMS REPORT ---
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 Family History Date Family Member(s) Problem(s) Comments General Diabetes Type I maternal grandfather Social History Type Date Description Comments Marital Status Single Lives With Family 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 No Active Hx Unknown Medications 017 - 018 Vital Signs Date Vital Result Comment 07/09/2018 Heart Rate 80 /min Respiratory Rate 16 /min Body Temperature 97.8 F 07/03/2018 Heart Rate 68 /min Respiratory Rate 16 /min Body Temperature 97.3 F 07/02/2018 Heart Rate 76 /min BP Systolic 118 mmHg BP Diastolic 80 mmHg Respiratory Rate 16 /min Body Temperature 98.3 F 07/01/2018 Height 70 inches 5'10" Weight 120.00 lb Heart Rate 72 /min BP Systolic Sitting 98 mmHg BP Diastolic Sitting 64 mmHg Respiratory Rate 18 /min Body Temperature 97.4 F BMI (Body Mass Index) 17.2 kg/m2 03/01/2018 Height 70 inches 5'10" Weight 120.00 lb Heart Rate 68 /min BP Systolic 118 mmHg BP Diastolic 68 mmHg Respiratory Rate 12 /min Body Temperature 98.8 F Pain Level 0 BMI (Body Mass Index) 17.2 kg/m2 01/30/2018 Height 70 inches 5'10" Heart Rate 80 /min BP Systolic 118 mmHg BP Diastolic 76 mmHg Respiratory Rate 16 /min Body Temperature 97.6 F Pain Level 2 01/11/2018 Height 70 inches 5'10" Weight 122.00 lb Heart Rate 70 /min BP Systolic 118 mmHg BP Diastolic 62 mmHg Respiratory Rate 12 /min Body Temperature 98.4 F Pain Level 3 BMI (Body Mass Index) 17.5 kg/m2 08/13/2017 Height 71 inches 5'11" Weight 120.00 lb Heart Rate 76 /min BP Systolic 117 mmHg BP Diastolic 70 mmHg Respiratory Rate 16 /min Body Temperature 98.6 F BMI (Body Mass Index) 16.7 kg/m2 Results Description No Information Procedures Date CPT Code Description Status 07/02/2018 16635 Tube,Thoracostomy,Incl Water S Completed 07/01/2018 33756 Tube,Thoracostomy,Incl Water S Completed 01/16/2018 98566 open tx of metacarpal fx,single inclds internal Completed fixation when per 01/16/2018 70038 open tx of metacarpal fx,single inclds internal Completed fixation when per 01/16/2018 62818 open tx of metacarpal fx,single inclds internal Completed fixation when per 01/11/2018 03813 Short Arm Splint Application Completed 08/11/2017 28672 Tube,Thoracostomy,Incl Water S Completed Encounters Type Date Location Provider CPT E/M Dx Office Visit 07/03/2018 [facility] Evan Ang M.D. 01547 J93.11 10:30a Of International Sales Manager Office Visit 07/02/2018 [facility] Evan Ang M.D. 49609 J93.11 8:45a Of International Sales Manager Office Visit 07/01/2018 [facility] [place], [address] J93.12 9:00a Of [facility] FACS Office Visit 06/30/2018 [facility] [place], [address] J93.11 7:00a Of [facility] FACS Office Visit 01/11/2018 [facility] [place] [address] S62.306A 1:45p Of [facility] Office Visit 08/13/2017 [facility] Myron Quinonez, 65658 J93.11 10:45a Of [facility] PA Z48.01 Office Visit 08/11/2017 7:00a [facility] Samy Baum, 68781 J93.11 Of [facility] Plan of Care Future Appointment(s):07/11/2018 4:00 pm - Evan Ang M.D. at [facility]07/09/2018 - Evan Ang M.D.J93.11 Primary spontaneous pneumothoraxFollow up:OR
--- OUTSIDE RECORDS SUMMARY | 2018-07-11 14:10 | XMS REPORT ---
:1995 External Reference #:[id number] Author Organization [employer] Address [address] [place] [address] Phone [phone] Care Team Providers Name Role Phone Patient's Choice Primary Care Physician Unavailable Payers Type Date Identification Numbers Payment Provider Subscriber Commercial Policy Number: [id number] [employer] Starr Chavez PayID: [id number] [address] [address] [place] [address] Problems Date Description Provider Status Onset: 01/11/2018 Anxiety Paco Rolon MD Active Onset: 01/11/2018 Closed fracture of multiple sites of Paco Rolon MD Active metacarpus Family History Date Family Member(s) Problem(s) Comments General Diabetes Type I maternal grandfather Social History Type Date Description Comments Marital Status Single 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 With Family 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[employer] ETOH Use Occasionally consumes alcohol Smoking Patient [...] 018 Vital Signs Date Vital Result Comment 07/01/2018 Height 70 inches 5'10" Weight 120.00 [...] Information Procedures Date CPT Code Description Status 01/16/2018 33575 open tx of metacarpal fx,single inclds internal Completed fixation when per 01/16/2018 40356 open tx of metacarpal fx,single inclds internal Completed fixation when per 01/16/2018 38603 open tx of metacarpal fx,single inclds internal Completed fixation when per 01/11/2018 33865 Short Arm Splint Application Completed 08/11/2017 86271 Tube,Thoracostomy,Incl Water S Completed Encounters Type Date Location Provider CPT E/M Dx Office Visit 01/11/2018 [place] [address] S62.306A 1:45p Of [facility] Office Visit 08/13/2017 [facility] Myron Quinonez, 47171 J93.11 10:45a Of [facility] Z48.01 Office Visit 08/11/2017 7:00a [facility] Samy Baum, 33386 J93.11 Of [facility] Plan of Care 07/01/2018 - Brandan Landis MD, FACSJ93.12 Secondary spontaneous pneumothoraxRecommendations:Pneumothorax catheter placement/Heimlich valve. I discussed the nature of the procedure, indications, risks, benefits, alternatives and option of no treatment. The need for anesthesia was discussed.The risks were explained, including, but not limited to: bleeding, infection, pain, scarring, injury of adjacent anatomic structures, risk of anesthesia (local), potential for need ing additional surgery/procedures. All questions were answered. The patient stated understanding and agreed to proceed. Will send to [facility] for procedure.
[2018-07-11] MEDS ORDERED: Dexamethasone TAB* 4 MG ONE (14:21)
[2018-07-11] MEDS ORDERED: Famotidine IV* 10 MG/ML 2 ML (20 mg) ONE (14:21)
[2018-07-11] MEDS ORDERED: Ondansetron ODT TAB* 4 MG ONE (14:21)
[2018-07-11] MEDS ORDERED: Ketorolac INJ* 30 MG/ML 1 ML VIAL ONE (14:22)
[2018-07-11] MEDS ORDERED: ceFAZolin 2 GM PREMIX in ORs 2 GM/50 ML BAG IVPB ONE (14:22)
[2018-07-11] MEDS ORDERED: Atracurium* 10 MG/ML 10 ML VIAL ONE (14:27)
[2018-07-11] MEDS ORDERED: fentaNYL* 50 MCG/ML 5 ML VIAL (250 MCG VIAL) ONE (14:27)
[2018-07-11] MEDS ORDERED: Midazolam* 1 MG/ML 5 ML VIAL (5 MG) ONE (14:28)
[2018-07-11] MEDS ORDERED: KETAMINE HCL* 50 MG/ML 10 ML VIAL ONE (14:28)
[2018-07-11] MEDS ORDERED: Propofol* 10 MG/ML 20 ML BTL IV PUSH ONE (16:38)
[2018-07-11] MEDS ORDERED: Phenylephrine INJ* 10 MG/ML 1 ML VIAL (10 MG) ONE (16:38)
[2018-07-11] MEDS ORDERED: Glycopyrrolate IV* 0.2 MG/ML 1 ML VIAL ONE (16:38)
[2018-07-11] MEDS ORDERED: Bupivacaine 0.25% SDV* 30 ML ONE (16:38)
[2018-07-11] MEDS ORDERED: Lidocaine 2% PF * 5 ML VIAL ONE (16:38)
[2018-07-11] MEDS ORDERED: HYDROmorphone INJ1* 1 MG/ML SYRINGE IV PRN (17:13)
[2018-07-11] MEDS ORDERED: Ketorolac INJ* 30 MG/ML 1 ML VIAL IV PUSH SCH (18:00)
[2018-07-11] MEDS ORDERED: Morphine VIAL* 4 MG/ML VIAL (1 ml vial) IV ONE (18:03)
[2018-07-11] MEDS: Morphine VIAL* 4 MG/ML VIAL (1 ml vial) IV PRN ×2 (18:04→19:12)
--- NOTE | 2018-07-11 18:10 | RAD ---
INDICATION: The patient is status post left fluoroscopy, bleb resection and pleurodesis followed by left-sided chest tube placement COMPARISON: Most recent comparison chest x-rays dated July 03, 2018 TECHNIQUE: Single AP portable view of the chest was obtained. FINDINGS: Image quality is compromised due to the relative inferiority of a portable chest x-ray. There is been interval placement of a large bore left-sided chest tube with the tip terminating just below the left lung apex. The heart and mediastinum exhibit normal size and contour. There is a small left-sided pneumothorax with the apex of the lung measuring approximately 4 mm from the chest wall. There is been interval appearance of density overlying the medial aspect of the left lung apex relative to the previous chest x-ray. Otherwise the lungs are grossly clear. There is no evidence of a large pleural effusion. Visualized bones are normal for the patient's age. IMPRESSION: Postsurgical changes as described above
[2018-07-11] MEDS: oxyCODONE/Acetamin 5/325 MG* TAB PO PRN (20:08)
[2018-07-11] MEDS: Docusate CAP* 100 MG PO SCH (20:09)
[2018-07-11] MEDS: Ketorolac INJ* 30 MG/ML 1 ML VIAL IV PUSH SCH (21:19)
[2018-07-11] MEDS: Ondansetron INJ* 2 MG/ML VIAL IV PRN (22:59)
[2018-07-12] MEDS ORDERED: Scopolamine 1.5 mg* PATCH ONE (00:16)
[2018-07-12] MEDS: oxyCODONE/Acetamin 5/325 MG* TAB PO PRN ×3 (01:37→16:09)
[2018-07-12] MEDS: Ketorolac INJ* 30 MG/ML 1 ML VIAL IV PUSH SCH ×4 (03:48→21:16)
--- NOTE | 2018-07-12 08:26 | PN ---
Progress Note - Progress Note Date of Service: 07/12/18 Note: POD#1 s/p left VATS Afeb, VS OK reza po's (nausea last night, resolved) voiding, no stool Pain control OK CT level 160 ml, still with large air leak Lungs clear, aerating well Dressing clean PO's as reza Pain meds Heplock Await decreased drainage and resolution of air leak.
[2018-07-12] MEDS: Docusate CAP* 100 MG PO SCH ×3 (08:55→21:17)
[2018-07-12] MEDS: Ondansetron INJ* 2 MG/ML VIAL IV PRN (09:15)
--- NOTE | 2018-07-12 09:39 | OP ---
OPERATIVE REPORT: DATE OF OPERATION: 07/11/18 - Inpatient, room [place] [address] DATE OF : 89 SURGEON: Evan Ang MD FLAME ANNEALING MACHINE SETTER: Digna Moore NP ANESTHESIOLOGIST: Dr. Olivo. ANESTHESIA: General anesthetic, local infiltration by the surgeon. PRE-OP DIAGNOSIS: Spontaneous left pneumothorax. POST-OP DIAGNOSIS: Spontaneous left pneumothorax. OPERATIVE PROCEDURE: Left video thoracoscopy, bleb resection, and pleurodesis as well as intercostal nerve block. DESCRIPTION OF PROCEDURE: The patient was supine on the operating room table. After adequate general anesthetic with double lumen intubation, fiberoptic bronchoscopy was carried out and confirmed appropriate placement of the tube. Tube was then secured by Anesthesiology and he was turned into the lateral decubitus position with the left chest upward. He was appropriately padded and positioned and secured to the table. Axillary roll was then placed. The left chest was prepped with antiseptic, draped in a sterile fashion. Local infiltrative anesthesia was administered in the lateral chest and approximately 2-cm incision was created and Selena clamp used to enter the pleural space. Two additional 5-mm cannula sites were placed anterolaterally and posterolaterally, and these were maybe 5-cm superior to the original site. Inspection revealed some apical blebs. These were stapled off using a reinforced purple load stapler. Specimen was sent for pathologic evaluation and mechanical pleurodesis was carried out using a Bovie scratch pad and then talc was insufflated as well. A 28-Korean chest tube was placed into the pleural space and sutured at the skin with 2-0 Prolene. The 2 small incisions were closed with 5-0 Vicryl followed by Steri-Strips. Note that a 4-level intercostal block was carried out with 0.25% Marcaine. Bandages were placed. Pleur-evac was placed. He was then awakened and brought to Recovery in good condition. No complications. Drain is 28-Korean chest tube. Sponge and instrument counts correct. Estimated blood loss 30 mL. Specimen was left apical bleb resection. [id number]/[facility] #: [id number] [facility]
[2018-07-12] MEDS: LORazepam INJ* 2 MG/ML 1 ML VIAL IV PUSH PRN (21:16)
[2018-07-12] MEDS: Acetaminophen TAB* 325 MG PO PRN (21:34)
[2018-07-13] MEDS: Ketorolac INJ* 30 MG/ML 1 ML VIAL IV PUSH SCH ×3 (02:32→14:51)
[2018-07-13] MEDS: Acetaminophen TAB* 325 MG PO PRN ×5 (02:45→23:39)
[2018-07-13] MEDS: LORazepam INJ* 2 MG/ML 1 ML VIAL IV PUSH PRN (03:03)
--- NOTE | 2018-07-13 09:07 | RAD ---
Indication: Status post video assisted fluoroscopy. Single frontal view of the chest performed at 0840 hours was reviewed. Comparison is made with previous exam dated July 11, 2018. Left chest tube is in place. Minimal left apical pneumothorax is noted. Right lung field is clear. IMPRESSION: MINIMAL LEFT APICAL PNEUMOTHORAX. RIGHT LUNG FIELD IS CLEAR.
[2018-07-13] MEDS: Docusate CAP* 100 MG PO SCH ×2 (09:24→20:32)
--- NOTE | 2018-07-13 09:54 | PN ---
Progress Note - Progress Note Date of Service: 07/13/18 Note: POD#2 s/p VATS Afeb, VS OK Voiding Maryanne po's Heplock IV CT level 250 ml, serosang STill persistent air leak Re-dressed vaseline gauze Place to water seal Re-check CXR in AM
[2018-07-13] MEDS: Ondansetron INJ* 2 MG/ML VIAL IV PRN (14:51)
[2018-07-13] MEDS: oxyCODONE/Acetamin 5/325 MG* TAB PO PRN ×2 (16:20→20:31)
[2018-07-13] MEDS ORDERED: NS 0.9% 1000 ML* 1,000 ML IV SCH (17:00)
[2018-07-14] MEDS: oxyCODONE/Acetamin 5/325 MG* TAB PO PRN ×5 (00:27→21:21)
[2018-07-14] MEDS: Acetaminophen TAB* 325 MG PO PRN ×3 (04:18→20:26)
[2018-07-14] MEDS: Docusate CAP* 100 MG PO SCH ×2 (07:33→20:27)
--- NOTE | 2018-07-14 08:59 | RAD ---
Indication: Follow-up video assisted thorascopic surgery. 2 views the chest including dual energy PA views demonstrates increasing left pneumothorax. This is of moderate size. Right lung field is clear. Left upper lobe nodule noted medially is again identified. IMPRESSION: Increasing left pneumothorax.
[2018-07-14] MEDS ORDERED: Scopolamine PATCH Remove* 1 NOTE MISC PATCH OFF ONE (09:00)
[2018-07-14] MEDS: LORazepam INJ* 2 MG/ML 1 ML VIAL IV PUSH PRN ×2 (09:18→22:32)
--- NOTE | 2018-07-14 09:19 | PN ---
Progress Note - Progress Note Date of Service: 07/14/18 SOAP: Subjective: Without complaint, not much appetite Minimal discomfort, no SOB Objective: Temp Pulse Resp BP Pulse Ox 98.2 F 52 16 121/70 100 07/14/18 07:27 07/14/18 07:27 07/14/18 07:50 07/14/18 07:27 07/14/18 07:49 Intake and Output Last 24 Hours 07/12/18 07/13/18 07/14/18 07/15/18 06:59 06:59 06:59 06:59 Intake Total 2220 2458 1910 Output Total 907 842 9687 0 Balance 1747 1625 800 0 Weight 120 lb Intake: IV Fluids 1999 1008 1000 LR 1008 NS (0.9%) 1000 NS 100ML, Cefazolin 2G 100 lr 1900 Oral 220 1450 910 Output: Chest Tube #1 148 308 10 Urine 799 128 3317 0 Emesis 100 Other: Estimated Void Medium # Voids 3 PEX: Comfortable-awake and alert. Lungs are clear, breath sounds clear-left chest tube dressing in place--no crepitance or drainage Cor is RRR CT without drainage--no leak on water seal, good fluctuation of fluid column on inspiration/expiration CXR--left PTX-new from yesterday, ?? last chest tube hole location. Assessment: POD# 3 s/p L VATS for recurrent L PTX- PTX on AM CXR today--no leak noted on pleuravac on water seal, clinically doing well. Plan: Chest tube to wall suction. Repeat CXR in 4 hours, AM 07/15 Continue other present care
--- NOTE | 2018-07-14 13:23 | RAD ---
Follow-up left pneumothorax. Single frontal view of the chest performed at 1210 hours was reviewed. Comparison is made with previous exam dated July 14, 2018. No mediastinal shift is noted. Heart is of normal size and configuration. Lung lr appear clear. Left pneumothorax has decreased in size. Left chest tube remains in place. IMPRESSION: DECREASING SIZE OF LEFT PNEUMOTHORAX.
[2018-07-15] MEDS: oxyCODONE/Acetamin 5/325 MG* TAB PO PRN ×2 (06:09→10:44)
--- NOTE | 2018-07-15 09:11 | RAD ---
HISTORY: left pneumothorax COMPARISONS: July 14, 2018 VIEWS: 1: frontal AP view of the chest at 8:55 AM FINDINGS: LINES AND TUBES: The left-sided chest port is noted CARDIOMEDIASTINAL SILHOUETTE: The cardiomediastinal silhouette is normal for portable technique. PLEURA: The costophrenic angles are sharp. No pleural abnormalities are noted. There is no appreciable residual pneumothorax. LUNG PARENCHYMA: The lungs are clear. ABDOMEN: The upper abdomen is clear. There is no subphrenic gas. BONES AND SOFT TISSUES: No bone or soft tissue abnormalities are noted. IMPRESSION: LEFT-SIDED CHEST TUBE WITHOUT APPRECIABLE RESIDUAL PNEUMOTHORAX.
--- NOTE | 2018-07-15 10:15 | PN ---
Progress Note - Progress Note Date of Service: 07/15/18 Note: POD#4 s/p VATS Afeb, VS OK CT drainage small. No air leak. Feels well, mild pain, no dyspnea. Breathing easy, unlabored, adeq aeration. Will d/c suction, go to water seal. Re-check CXR later. Poss D/C tube and discharge.
[2018-07-15] MEDS: Docusate CAP* 100 MG PO SCH (10:44)
--- NOTE | 2018-07-15 13:02 | RAD ---
INDICATION: The patient is status post VATS procedure for a spontaneous left-sided pneumothorax COMPARISON: Chest x-ray acquired July 14, 2018 at 0757 hours TECHNIQUE: Single AP portable view of the chest was obtained. FINDINGS: Image quality is compromised due to the relative inferiority of a portable chest x-ray. Again seen is a large bore left-sided chest tube with the tip overlying the left lung apex. There is a small left-sided pneumothorax with the apex of the lung measuring approximately 5 mm from the apex of the chest wall. This pneumothorax is greatly reduced when compared to the chest x-ray acquired July 14, 2018. There is no mediastinal shift. The visualized lungs are otherwise well-aerated. IMPRESSION: Persistent trace left-sided pneumothorax without mediastinal shift with an appropriately positioned large bore chest tube in the AP projection.
[2018-07-15 14:00] VITALS: BP 134/86
[2018-07-15] MEDS: LORazepam INJ* 2 MG/ML 1 ML VIAL IV PUSH PRN (14:06)
--- NOTE | 2018-07-15 14:33 | PN ---
Progress Note - Progress Note Date of Service: 07/15/18 Note: #28 chest tube removed from left chest;occlusive xeroform and [id number] pads applied;pt tolerated well.LAURIE Pradhan 07/15/18 [id number]
[2018-07-15] MEDS: Acetaminophen TAB* 325 MG PO PRN (15:13)
--- NOTE | 2018-07-17 12:47 | DS ---
CC: Dr. Evan Ang DISCHARGE SUMMARY: DATE OF ADMISSION: 07/11/18. DATE OF DISCHARGE: 07/15/18. PRINCIPAL ADMITTING DIAGNOSIS: Spontaneous pneumothorax. OPERATIONS ON THIS ADMISSION: Left video thoracoscopy. HOSPITAL COURSE: The patient had a recurrent left spontaneous pneumothorax, was managed with an outpatient pneumothorax catheter and he did not respond adequately and could not have the tube removed. Therefore, it was planned to have semi-urgent video thoracoscopy. He came to the hospital, taken to the operating room on 07/11/18 where he underwent left video thoracoscopy with bleb resection and pleurodesis. He was maintained with a chest tube through a Pleur- evac in the postoperative period. Initially, he had a large air leak and required suction; however, that resolved by the third day and at that point, he was doing well off of suction. He had follow up chest x-ray on the fourth day off of suction and the lung was well expanded. There was no air leak. There was minimal drainage. His pain control was good. Appetite and bowel function were adequate. The tube was removed on the fourth day and was discharged home on 07/15/18. He will get another outpatient chest x-ray and follow up in the office in about a week. [id number]/[facility] #: [id number] [facility]
== END 2018-07-15 15:20 | disposition home or self-care (01) | DRG 121 ==
LOC: AA 14:07 → SSU 19:40
PROVIDERS: ADMIT Surgery; ATTEND Surgery
PROC: 0BQL4ZZ Repair Left Lung, Percutaneous Endoscopic Approach (ICD-10-PCS; 2018-07-11)
PROC: 3E0T3BZ Introduction of Anesthetic Agent into Peripheral Nerves and Plexi, Percutaneous Approach (ICD-10-PCS; 2018-07-11)
PROC: 0W9B40Z Drainage of Left Pleural Cavity with Drainage Device, Percutaneous Endoscopic Approach (ICD-10-PCS; 2018-07-11)
PROC: 0B5P4ZZ Destruction of Left Pleura, Percutaneous Endoscopic Approach (ICD-10-PCS; principal; 2018-07-11 15:45)
DX: J93.11 Primary spontaneous pneumothorax (principal); F41.9 Anxiety disorder, unspecified; Z83.3 Family history of diabetes mellitus; Z80.9 Family history of malignant neoplasm, unspecified
CPT/HCPCS: 71045; 71046; 88307; 88312; A9270-GY; C1776; J0690; J1170; J1885; J2060; J2250; J2270; J2405; J2704; J3010; J8540